=== PATIENT | female | born 2000 | race Caucasian/White ===

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

== ENCOUNTER → 2019-07-11 | Outpatient (REF) | payer OTHER ==
[2019-07-11 20:47] LABS: ESTRADIOL 20.2 PG/ML; FOLLICLE STIMULATING HORMONE 5.1 mIU/mL; LUTEINIZING HORMONE 3.6 mIU/mL; PROGESTERONE 0.38 NG/ML
[2019-07-11 20:52] LABS: FREE T4 1.12 NG/DL (0.78-1.33); THYROID STIMULATING HORMONE 1.75 uIU/ML (0.463-3.98)
[2019-07-14 00:08] LABS: DEHYDROEPIANDROSTERONE SULFATE 259.1 ug/dL (110.0-433.2); TESTOSTERONE FREE (DIRECT) 2.9 pg/mL (Not Estab.)
== END ==
LOC: M SFHCWAGY 13:26
PROVIDERS: ATTEND Nurse Practitioner Women's Health
DX: N92.6 Irregular menstruation, unspecified (principal); R63.5 Abnormal weight gain

== ENCOUNTER 2023-05-06 13:01 | Emergency (ER) | payer OTHER ==
[~2023-05-06] VITALS: Ht 160 cm; Wt 89.0 kg
[2023-05-06 16:09] LABS: HEMATOCRIT 43.3 % (36.0-47.0); HEMOGLOBIN 14.3 g/dl (12.0-15.5); MEAN CORPUSCULAR HEMOGLOBIN 29.2 pg (27.0-33.0); MEAN CORPUSCULAR VOLUME 88.4 fl (80.0-96.0); PLATELET COUNT, AUTOMATED 287 10^3/uL (150-450); WHITE BLOOD COUNT 8.6 10^3/uL (4.0-10.0)
[2023-05-06 19:29] VITALS: BP 112/74; TEMP 98; O2SAT 100
[2023-05-06 21:52] LABS: GC DNA AMPLIFICATION NEGATIVE (NEGATIVE)
== END 2023-05-06 19:30 | disposition home or self-care (01) ==
LOC: M ED 13:01
DX: O20.0 Threatened abortion (principal); Z3A.00 Weeks of gestation of pregnancy not specified

== ENCOUNTER → 2023-06-22 | Outpatient (REF) | payer OTHER | LOC: M SFHCWAGY 10:58 | PROVIDERS: ATTEND Nurse Practitioner Family | DX: Z12.4 Encounter for screening for malignant neoplasm of cervix (principal) ==

== ENCOUNTER → 2023-09-20 | Outpatient (CLI) | payer OTHER ==
[2023-09-20 16:28] LABS: HEMATOCRIT 39.5 % (36.0-47.0); HEMOGLOBIN 13.4 g/dl (12.0-15.5); MEAN CORPUSCULAR HEMOGLOBIN 29.9 pg (27.0-33.0); MEAN CORPUSCULAR HGB CONC 33.9 g/dl (32.0-36.5); MEAN CORPUSCULAR VOLUME 88.2 fl (80.0-96.0); PLATELET COUNT, AUTOMATED 228 10^3/uL (150-450); RED BLOOD COUNT 4.48 10^6/uL (4.00-5.40); WHITE BLOOD COUNT 10.5 10^3/uL (4.0-10.0)
[2023-09-20 17:25] LABS: HIV 1&2 SCREEN NEGATIVE (NEGATIVE)
[2023-09-20 17:34] LABS: HEPATITIS C VIRUS ABY INDEX 0.02 INDEX (<0.8)
== END ==
LOC: M PLALAB 14:00
PROVIDERS: ATTEND Advanced Practice Midwife
DX: Z34.81 Encounter for supervision of other normal pregnancy, first trimester (principal)

== ENCOUNTER → 2023-11-16 | Outpatient (CLI) | payer OTHER | LOC: M WHC 06:38 | PROVIDERS: ATTEND Advanced Practice Midwife | DX: Z34.82 Encounter for supervision of other normal pregnancy, second trimester (principal) ==

== ENCOUNTER → 2023-12-07 | Outpatient (CLI) | payer OTHER | LOC: M WHC 13:36 | PROVIDERS: ATTEND Advanced Practice Midwife | DX: Z36.89 Encounter for other specified antenatal screening (principal); Z3A.19 19 weeks gestation of pregnancy ==

== ENCOUNTER 2023-12-15 00:21 | Outpatient (CLI) | payer OTHER ==
[~2023-12-15] VITALS: Ht 160 cm; Wt 97.5 kg
[2023-12-15] MEDS ORDERED: PRENTAB9 PO (00:33)
[2023-12-15 00:34] VITALS: BP 117/56
[2023-12-15] MEDS ORDERED: HOME MED LIST COMPLETE! XX SCH (00:55)
[2023-12-15] MEDS: metroNIDAZOLE (FLAGYL) 500MG TABLET PO ONE (01:25)
[2023-12-15 01:34] LABS: APPEARANCE, URINE CLEAR (CLEAR); BACTERIA, URINE AUTO NEGATIVE (NEGATIVE); BILIRUBIN, URINE AUTO NEGATIVE (NEGATIVE); BLOOD, URINE BLOOD NEGATIVE (NEGATIVE); COLOR, URINE YELLOW (YELLOW); GLUCOSE, URINE (UA) AUTO NEGATIVE (NEGATIVE); KETONE, URINE AUTO 2+ mg/dL (NEGATIVE); LEUKOCYTE ESTERASE, URINE AUTO NEGATIVE (NEGATIVE); MUCUS, URINE SMALL (NEGATIVE); NITRITE, URINE AUTO NEGATIVE (NEGATIVE); PROTEIN, URINE AUTO NEGATIVE (NEGATIVE); RBC, URINE AUTO 0 /HPF (0-3); SPECIFIC GRAVITY URINE AUTO 1.008 (1.002-1.035); SQUAMOUS EPITHELIAL CELL UR AU 3 /HPF (0-6); UROBILINOGEN, URINE AUTO 0.2 mg/dL (0.0-2.0); WBC, URINE AUTO 1 /HPF (0-3)
[2023-12-15 02:35] LABS: Trichomonas vaginalis (AMP) NOT DETECTED (NEGATIVE)
[2023-12-15 02:59] LABS: GC DNA AMPLIFICATION NEGATIVE (NEGATIVE)
== END 2023-12-15 03:06 | disposition home or self-care (01) ==
LOC: M LDO 00:21
PROVIDERS: ATTEND Advanced Practice Midwife
DX: O23.592 Infection of other part of genital tract in pregnancy, second trimester (principal); Z3A.23 23 weeks gestation of pregnancy
CPT/HCPCS: 59025; 81001; 87661; 87810; 87850; G0463

== ENCOUNTER → 2024-01-05 | Outpatient (CLI) | payer OTHER ==
[~2024-01-05] MED LIST: PRENTAB9 PO
== END ==
LOC: M WHC 12:47
PROVIDERS: ATTEND Advanced Practice Midwife
DX: Z36.89 Encounter for other specified antenatal screening (principal); Z3A.19 19 weeks gestation of pregnancy

== ENCOUNTER → 2024-01-10 | Outpatient (CLI) | payer OTHER ==
[2024-01-10 18:23] LABS: HEMATOCRIT 37.4 % (36.0-47.0); HEMOGLOBIN 12.2 g/dl (12.0-15.5); MEAN CORPUSCULAR HEMOGLOBIN 30.1 pg (27.0-33.0); MEAN CORPUSCULAR HGB CONC 32.6 g/dl (32.0-36.5); MEAN CORPUSCULAR VOLUME 92.3 fl (80.0-96.0); PLATELET COUNT, AUTOMATED 208 10^3/uL (150-450); RED BLOOD COUNT 4.05 10^6/uL (4.00-5.40); WHITE BLOOD COUNT 9.7 10^3/uL (4.0-10.0)
== END ==
LOC: M PLALAB 14:20
PROVIDERS: ATTEND Advanced Practice Midwife
DX: Z34.82 Encounter for supervision of other normal pregnancy, second trimester (principal)

== ENCOUNTER → 2024-01-13 | Outpatient (CLI) | payer OTHER | LOC: M LAB 07:36 | PROVIDERS: ATTEND Advanced Practice Midwife | DX: O99.810 Abnormal glucose complicating pregnancy (principal); Z3A.00 Weeks of gestation of pregnancy not specified ==

== ENCOUNTER → 2024-02-22 | Outpatient (CLI) | payer OTHER | LOC: M RAD 06:48 | PROVIDERS: ATTEND Obstetrics & Gynecology | DX: O26.843 Uterine size-date discrepancy, third trimester (principal) ==

== ENCOUNTER → 2024-03-15 | Outpatient (REF) | payer OTHER | LOC: M SFHCWAGY 12:13 | PROVIDERS: ATTEND Obstetrics & Gynecology | DX: Z36.89 Encounter for other specified antenatal screening (principal); Z3A.36 36 weeks gestation of pregnancy ==

== ENCOUNTER 2024-04-08 08:33 | Inpatient (IN) | payer OTHER ==
[2024-04-08] VITALS (12 sets, daily range): BP systolic 118–136; BP diastolic 58–94
[~2024-04-08] VITALS: Ht 160 cm; Wt 100.1 kg
[2024-04-08] MEDS ORDERED: HOME MED LIST COMPLETE! XX SCH (08:55)
[2024-04-08 09:28] LABS: HEMATOCRIT 37.8 % (36.0-47.0); HEMOGLOBIN 12.8 g/dl (12.0-15.5); MEAN CORPUSCULAR HGB CONC 33.9 g/dl (32.0-36.5); MEAN CORPUSCULAR VOLUME 88.7 fl (80.0-96.0); PLATELET COUNT, AUTOMATED 128 10^3/uL (150-450); RED BLOOD COUNT 4.26 10^6/uL (4.00-5.40); WHITE BLOOD COUNT 7.2 10^3/uL (4.0-10.0)
[2024-04-08] MEDS: miSOPROStol 50MCG 1/2 TABLET PO PRN (09:29)
[2024-04-08 10:27] LABS: HEPATITIS C VIRUS ABY INDEX < 0.02 INDEX (<0.8)
[2024-04-08] MEDS: AMPICILLIN SOD 2 GM in D5W MINI-BAG PLUS 100 ML IV ONE (17:32)
[2024-04-08] MEDS: LR 1,000 ML IV SCH (22:01)
[2024-04-08] MEDS: AMPICILLIN SOD 1 GM in D5W MINI-BAG PLUS 100 ML IV SCH (22:02)
[2024-04-09] VITALS (35 sets, daily range): BP systolic 100–173; BP diastolic 55–100
[2024-04-09] MEDS: OXYTOCIN DRIP 30 UNITS in IV 1 EA IV SCH (09:52)
[2024-04-09] MEDS: BUTORPHANOL 2 MG/ML 1ML VIAL IV ONE ×2 (11:20→19:44)
[2024-04-09] MEDS: PROMETHAZINE 25MG/ML 1ML VIAL IV ONE ×2 (11:20→19:42)
[2024-04-09] MEDS: LR 1,000 ML IV SCH (14:12)
[2024-04-09] MEDS ORDERED: LR 500 ML IV PRN (23:45)
[2024-04-09] MEDS ORDERED: diphenhydrAMINE 50MG/ML VIAL IV PRN (23:45)
[2024-04-09] MEDS ORDERED: ePHEDrine SULFATE 25 MG/5 ML(5MG/ML) SYRINGE IVP PRN (23:45)
[2024-04-09] MEDS ORDERED: NALOXONE INJ 0.4MG/1ML VIAL IV PRN (23:45)
[2024-04-09] MEDS ORDERED: EPIDURAL/PCA KEYS XX PRN (23:45)
[2024-04-10] VITALS (34 sets, daily range): BP systolic 108–146; BP diastolic 56–91; O2SAT 98–99
[2024-04-10] MEDS: FENTANYL/ROPIVACAINE/NACL BAG 100 ML EPIDURAL SCH (00:28)
[2024-04-10] MEDS: LACTATED RINGER'S 1000 ML IV ONE (01:01)
[2024-04-10] MEDS: OXYTOCIN DRIP 30 UNITS in IV 1 EA IV SCH (04:00)
[2024-04-10] MEDS ORDERED: IBUPROFEN 600MG TAB PO PRN (04:00)
[2024-04-10] MEDS ORDERED: RHO(D) IMMUNE GLOBULIN/MALTOSE 500MCG(2500IU)/2.2ML VIAL (WINRHO) IM SCH (04:00)
[2024-04-10] MEDS ORDERED: DIBUCAINE 1% OINTMENT 30GM TOP PRN (04:00)
[2024-04-10] MEDS ORDERED: ACETAMINOPHEN TAB 650MG DOSE (2X325MG) PO PRN (04:00)
[2024-04-10] MEDS ORDERED: ACETAMINOPHEN 500 MG TAB PO PRN (04:00)
[2024-04-10] MEDS ORDERED: METHYLERGONOVINE MALEATE 0.2 MG TAB PO PRN (04:00)
[2024-04-10] MEDS: METHYLERGONOVINE MALEATE 0.2MG/ML 1ML VIAL IM PRN (04:10)
[2024-04-10] MEDS: ONDANSETRON 4MG 2ML VIAL IV PRN (04:34)
[2024-04-10] MEDS: PRENATAL VITAMINS CHEWABLE TABLET PO SCH (09:03)
[2024-04-10] MEDS: IBUPROFEN 800 MG TAB PO PRN (09:04)
[2024-04-11 06:00] VITALS: BP 127/81; O2SAT 98
[2024-04-11] MEDS: DOCUSATE SODIUM 100MG CAPSULE PO PRN (15:17)
[2024-04-12] MEDS ORDERED: MEASLES,MUMPS,RUBELLA VACCINE INJ (MMR-II) SC.IMMUN ONE (09:00)
== END 2024-04-11 20:17 | disposition home or self-care (01) | DRG 807 ==
LOC: M LDI 08:33 → M OBS 04-10 05:30
PROVIDERS: ADMIT Obstetrics & Gynecology; ATTEND Advanced Practice Midwife
PROC: 3E0P7GC Introduction of Other Therapeutic Substance into Female Reproductive, Via Natural or Artificial Opening (ICD-10-PCS; 2024-04-09)
PROC: 10E0XZZ Delivery of Products of Conception, External Approach (ICD-10-PCS; principal; 2024-04-10)
PROC: 0KQM0ZZ Repair Perineum Muscle, Open Approach (ICD-10-PCS; 2024-04-10)
DX: O13.4 Gestational [pregnancy-induced] hypertension without significant proteinuria, complicating childbirth (principal); Z37.0 Single live birth; Z3A.39 39 weeks gestation of pregnancy; O70.1 Second degree perineal laceration during delivery

== ENCOUNTER → 2024-07-02 | Outpatient (REF) | payer OTHER | LOC: M SFHCWAGY 13:39 | PROVIDERS: ATTEND Advanced Practice Midwife | DX: Z12.4 Encounter for screening for malignant neoplasm of cervix (principal) ==

== ENCOUNTER → 2025-01-01 | Outpatient (REF) | payer OTHER | LOC: M PLALAB 07:10 | PROVIDERS: ATTEND Obstetrics & Gynecology | DX: Z53.9 Procedure and treatment not carried out, unspecified reason (principal) ==

== ENCOUNTER → 2025-06-17 | Outpatient (CLI) | payer OTHER ==
[2025-06-17 18:23] LABS: PLATELET COUNT, AUTOMATED 255 10^3/uL (150-450)
[2025-06-17 18:59] LABS: Trichomonas vaginalis (AMP) NOT DETECTED (NEGATIVE)
[2025-06-17 19:05] LABS: HIV 1&2 SCREEN NEGATIVE (NEGATIVE)
[2025-06-17 19:13] LABS: HEPATITIS C VIRUS ABY INDEX 0.02 INDEX (<0.8)
[2025-06-17 19:22] LABS: GC DNA AMPLIFICATION NEGATIVE (NEGATIVE)
== END ==
LOC: M PLALAB 13:40
PROVIDERS: ATTEND Nurse Practitioner Family
DX: Z34.81 Encounter for supervision of other normal pregnancy, first trimester (principal)

== ENCOUNTER → 2025-07-16 | Outpatient (CLI) | payer OTHER | LOC: M PLALAB 07:59 | PROVIDERS: ATTEND Nurse Practitioner Family | DX: Z34.80 Encounter for supervision of other normal pregnancy, unspecified trimester (principal) ==